=== PATIENT | male | born 1965 | race Caucasian/White ===

== ENCOUNTER 2021-02-18 18:37 | Emergency (ER) | payer OTHER, SELFPAY ==
--- NOTE | 2021-02-18 18:43 | ED_ITS ---
HPI - Allergic Reaction General Chief complaint: Allergic Reaction Stated complaint: allergic reaction - bee string Time Seen by Provider: 02/18/21 18:42 Source: patient and family Mode of arrival: ambulatory Limitations: no limitations History of Present Illness MD complaint: allergic reaction and hives Onset (ago): hour(s) (1) Exposure: insect bite (multiple bee stings) Symptoms: rash, itching, difficulty swallowing and hoarseness Severity: severe Treatment prior to arrival: benadryl (25) Previous Allergic Reaction History: none Related Data Previous Rx's Medication Instructions Recorded epinephrine 0.3 mg/0.3 mL 0.3 mg IM Q10M PRN #2 ea 02/18/21 injection, auto-injector prednisone 20 mg tablet 40 mg PO DAILY 5 Days #10 tab 02/18/21 Allergies Allergy/AdvReac Type Severity Reaction Status Date / Time oxycodone [From ROXICET] AdvReac Intermediate HALLUCINATI Verified 02/18/21 21:27 ONS bee pollen [bee stings] AdvReac Anaphylaxis Verified 02/18/21 21:27 Review of Systems Review of Systems: Constitutional : No Fever, No Chills ENT/Mouth : no oral swelling, pos Hoarseness, No Swallowing Difficulty Eyes: No Eye Pain, No Swelling, No Redness Cardiovascular : No Chest Pain, No SOB Respiratory : No Cough, No Sputum, No Wheezing, No Smoke Exposure, No Dyspnea Gastrointestinal : No Nausea, No Vomiting, No Diarrhea, No abdominal Pain Genitourinary : No Dysuria, No Urinary Frequency, No Hematuria Musculoskeletal : No joint pain, No Myalgias, No Joint Swelling Skin : No Skin Lesions, positive rash Neuro : No Weakness, No Numbness, No Headache Psych : No Anxiety/Panic, No Depression Heme/Lymph: No Bruising, No Lymphadenopathy Endocrine : No Polyuria, No Polydipsia All other systems reviewed and are negative [facility] Past Medical History Attestation statement: The following information was validated with the patient. Medical History HTN (hypertension) Social History Social History (Updated 02/18/21 @ 18:45 by Arianna Duran DO) Patient Tobacco Use Status: Never used Tobacco Use of substances other than those prescribed or required for medical reasons: No Advance Directives: No Advance Directives Information Provided: No Physical Exam Vital Signs: Vital Signs: Last Vital Signs Temp 97.5 F 02/18/21 21:17 Pulse 74 02/18/21 21:17 Resp 17 02/18/21 21:17 BP 175/91 H 02/18/21 21:17 Pulse Ox 96 02/18/21 21:17 Body Mass Index 25.8 Appearance: Alert. Oriented X3. Anxious mild acute distress. Eyes: Pupils equal, round and reactive to light. ENT: Pharynx normal. no oral swelling noted Neck: Normal inspection. Neck supple. CVS: Normal heart rate and rhythm. Pulses normal. Respiratory: No respiratory distress. Breath sounds normal. Abdomen: Soft and nontender. Skin: Skin warm and dry. Normal skin color. diffuse hives Extremities: No lower extremity edema. No calf ttp Neuro: Oriented X 3. No motor deficit. No sensory deficit. Course Course Course Narrative: patient is overall improving at this time needed repeat dose of benadryl for just hives on the arm has done well - no need for repeat epi observed x 4 hours has Rx for epi pen and prednione MDM - Allergic Reaction MDM Narrative Medical decision making narrative: 55 yo male with HTN here with c/o hives, hoarseness and some diff swallowing 1 hour [employer]TE[employer] due to multiple bee stings. The patient is anaphylactic at this time - will need IM epi, IV steroids, IV pepcid/benadryl. Will observe and monitor. Critical Care Time Critical Care Time Critical Care Time: Yes Total Critical Care Time: 35 Attestation: IM epi, observation, treatment of acute anaphylaxis I attest to this time spent taking care of the patient Discharge Plan Discharge Clinical Impression: Anaphylaxis Patient Disposition: Home, Self-Care Instructions: Anaphylaxis (ED) Additional Instructions: return to ED for any worsening symptoms or concerns Prescriptions: New prednisone 20 mg tablet 40 mg PO DAILY 5 Days Qty: 10 RF: 0 epinephrine 0.3 mg/0.3 mL auto-injector 0.3 mg IM Q10M PRN (Reason: anaphylaxis) Qty: 2 RF: 0 Stand Alone Forms: Work/School Release
[2021-02-18] MEDS: diphenhydrAMINE HCL 50 MG/ML VIAL 25 MG IVPUSH ×2 (18:46→20:16)
[2021-02-18] MEDS: 0.9 % Sodium Chloride 1,000 ML 999 ML IV (18:47)
[2021-02-18] MEDS: EPINEPHrine 1 MG/ML VIAL 0.3 MG IM (18:48)
[2021-02-18] MEDS: methylPREDNISolone Sod Succ 125 MG/2 ML VIAL IVPUSH (18:49)
[2021-02-18 18:50] VITALS: PULSE 88; RESP 24; O2SAT 96; BMI 25.8
[2021-02-18 18:57] VITALS: BP 181/119; PULSE 77; RESP 17; O2SAT 96
[2021-02-18] MEDS: Famotidine/PF 20 MG/2 ML VIAL IVPUSH (18:59)
[2021-02-18 19:09] VITALS: BP 182/104; PULSE 86; RESP 16; O2SAT 96
--- NOTE | 2021-02-18 19:10 | PC.NURSE ---
Lungs clear to auscultation. Per at bedside, hives are much better at this time. Hives noted to right inner thigh.
--- NOTE | 2021-02-18 20:18 | PC.NURSE ---
patient called this RN to room. Large red raised areas to right forearm. Spoke with Dr Duran. Patient given another 25mg Benadryl per order.
[2021-02-18 21:17] VITALS: BP 175/91; PULSE 74; RESP 17; TEMP 36.4; O2SAT 96
== END 2021-02-18 22:45 | disposition home or self-care (01) ==
PROVIDERS: Emergency Provider Emergency Medicine; PCP Physician Assistant Medical
DX: T63.441A Toxic effect of venom of bees, accidental (unintentional), initial encounter (principal); T78.2XXA Anaphylactic shock, unspecified, initial encounter; X58.XXXA Exposure to other specified factors, initial encounter; I10 Essential (primary) hypertension
CPT/HCPCS: 96361; 96372; 96374; 96375; 96376; 99284; 99291; J0171; J1200; J2930

== ENCOUNTER 2021-08-04 16:51 | Outpatient (REF) | payer OTHER, SELFPAY | END 2021-08-04 16:52 | disposition home or self-care (01) | LOC: HO.LNP 16:51 | PROVIDERS: Visit Provider Physician Assistant | DX: R30.0 Dysuria (principal) | CPT/HCPCS: 87086; 87088; 87186 ==

== ENCOUNTER 2021-08-06 07:26 | Inpatient (IN) | payer OTHER, SELFPAY ==
[2021-08-06] VITALS (11 sets, daily range): BP systolic 129–168; BP diastolic 73–93; PULSE 81–89; RESP 16–20; TEMP 36.6–38.3; O2SAT 96–98; BMI 26.6
--- NOTE | ~2021-08-06 | US_ITS ---
EXAMINATION: US RETROPERITONEAL LIMITED (RENAL ONLY) CLINICAL INFORMATION: Flank pain, urinary retention, evaluate for stones. COMPARISON: No similar priors. TECHNIQUE: Real-time imaging of the kidneys. FINDINGS: RIGHT KIDNEY: 10.7 x 5.1 x 6.3 cm (SAG x AP x TRV). The kidney is normal in size, contour, and echogenicity. Renal cortical thickness is normal. Minimally septated 1.3 cm cyst in the mid pole, classified as Bosniak 2 and not requiring further follow-up. LEFT KIDNEY: 10.3 x 5.7 x 5.2 cm (SAG x AP x TRV). The kidney is normal in size, contour, and echogenicity. Renal cortical thickness is normal. No calculi or focal parenchymal lesions. No hydronephrosis. US/US renal BI IMPRESSION: No acute sonographic abnormalities.
--- NOTE | 2021-08-06 07:45 | ED_ITS ---
HPI - Male Genitourinary General Chief complaint: Urogenital-Male Stated complaint: Blood in urine Time Seen by Provider: 08/06/21 07:45 Source: patient Mode of arrival: ambulatory Limitations: no limitations History of Present Illness HPI Narrative: 2 days ago started with hematuria, patient was placed on macrobid BID, last night had fever to 101.7. Now with flank pain. Complaint: dysuria Onset (ago): day(s) Duration: constant Location: right flank Severity: moderate Quality: burning Associated symptoms: Reports dysuria and fever Related Data Home Medications Medication Instructions Recorded Confirmed simvastatin 10 mg tablet 10 mg PO BEDTIME 08/04/21 08/06/21 lisinopril 20 mg tablet 20 mg PO BID 08/06/21 08/06/21 tamsulosin 0.4 mg capsule 0.4 mg PO BEDTIME 08/06/21 08/06/21 Previous Rx's Medication Instructions Recorded epinephrine 0.3 mg/0.3 mL 0.3 mg (0.3 mL) IM Q10M PRN #2 ea 02/18/21 injection, auto-injector nitrofurantoin 100 mg PO Q12H 5 Days #10 cap 08/04/21 monohydrate/macrocrystals 100 mg capsule (Macrobid) Allergies Allergy/AdvReac Type Severity Reaction Status Date / Time oxycodone [From ROXICET] AdvReac Intermediate HALLUCINATI Verified 08/04/21 13:02 ONS bee pollen [bee stings] AdvReac Anaphylaxis Verified 08/04/21 13:02 Review of Systems Constitutional: Constitutional: Reports no additional constitutional complaints Eyes: Eyes: Reports no additional eye complaints ENT: Denies dizziness Cardiovascular: Cardiovascular: Reports no additional cardiovascular complaints Respiratory: Respiratory: Reports as per HPI Gastrointestinal: Gastrointestinal: Reports no additional gastrointestinal complaints Musculoskeletal: Musculoskeletal: Reports no additional musculoskeletal complaints Integumentary/Breasts: Skin/Breast: Denies rash Neurologic: Reports system reviewed and no additional complaints, except as documented, Denies dizziness and Denies Sensory deficit (Neuro) Psychiatric: Psychiatric: Denies anxiety PMF Past Medical History Medical History HTN (hypertension) Surgical History No pertinent past surgical history Family History Family History Father Prostate cancer Social History Social History Household Members: None Housing: House Do you presently have visiting nurse or other home services: No Alcohol intake: current Alcohol intake frequency: holidays/special occasions only Patient Tobacco Use Status: Never used Tobacco service: No Current occupational status: employed Physical Exam Vital Signs: Vital Signs: Last Vital Signs Temp 96.9 F 08/08/21 07:45 Pulse 86 08/08/21 07:45 Resp 18 08/08/21 07:45 BP 133/89 08/08/21 07:45 Pulse Ox 93 08/08/21 07:45 BMI result Body Mass Index 26.6 Const: General: healthy appearing Nutritional Appearance: average body habitus Orientation/consciousness: oriented to person and patient oriented x3 Limitations: no limitations HEENT: Head: Yes normal to inspection Ears: external ears normal General nose exam: Normal external nose present Mouth: Normal oral and palatal mucosa present and oropharynx normal Throat: Yes posterior oropharynx normal Eyes: General: appearance normal, both eyes and all related structures Neck: Other: supple Neck: Yes normal visual inspection Chest: Chest palpation & inspection: normal inspection of the chest Resp: Auscultation: clear to auscultation bilaterally Cardio: Jugular venous distension: no JVD Rate: regular rate Rhythm: regular rhythm Heart sounds: S1 normal heart sound present and S2 normal heart sound present GI: Inspection: Yes normal to inspection Palpation (GI): Soft to palpation, nontender and No hepatosplenomegaly present Auscultation: normal bowel sounds : General: Yes no CVA tenderness Back/Spine/Pelvis: Back: no CVA tenderness Skin: General skin exam: no rashes or lesions noted Neuro: General: oriented to person and patient oriented x3 Cranial nerves: Yes CN's II-XII intact bilaterally Motor exam (neuro): 5/5 motor strength present throughout Sensory Exam: No Sensory deficit (Neuro) Extrem: General: Yes normal to inspection Psych: Appearance: grossly normal Course Reevaluation(s) Reevaluation #1: Patient with urinary retention 450, infected urine, fever and rigors at home on macrobid, elevated WBC and lactate will admit. Time: 10:35 MDM - Male Genitourinary Lab Data Result diagrams: 08/08/21 05:33 08/08/21 05:33 Labs: Lab Results 08/06/21 08/06/21 08/06/21 Range/Units 08:11 08:12 08:12 WBC 16.3 H (4.8-10.8) X10*3/uL RBC 4.91 (4.60-5.80) X10*6/uL Hgb 15.4 (14.0-18.0) g/dl Hct 45.8 (42.0-52.0) % MCV 93.3 (80.0-98.0) fL MCH 31.4 (27.0-33.0) pg MCHC 33.6 (31.0-36.0) g/dl RDW 12.1 (11.0-16.0) % Plt Count 179 (160-400) X10*3/uL MPV 13.2 H (9.4-12.4) fL Immature Gran % (Auto) 0.9 H (0.0-0.4) % Neut % (Auto) 76.7 H (45-73) % Lymph % (Auto) 11.0 L (20-40) % Simpson % (Auto) 10.0 (2-11) % Eos % (Auto) 1.2 (0-4) % Baso % (Auto) 0.2 (0-2) % Lymph # (Auto) 1.8 (1.2-4.9) X10*3/uL Simpson # (Auto) 1.6 H (0.1-1.2) X10*3/uL Eos # (Auto) 0.2 (0.0-0.4) X10*3/uL Baso # (Auto) 0.0 (0.0-0.2) X10*3/uL Abs Immat Gran (auto) 0.14 H (0.00-0.03) X10*3/uL Absolute Neuts (auto) 12.5 H (2.0-8.3) x10*3/uL Absolute Nucleated RBC 0.000 (0.0-0.012) X10*3/uL Nucleated RBC % (auto) 0.0 (0.0-0.2) /100WBC Smear Tech's Comments VERIFIED Sodium 134 L (135-145) mmol/L Potassium 4.2 (3.3-5.1) mmol/L Chloride 98 (96-108) mmol/L Carbon Dioxide 25 (22-29) mmol/L Anion Gap 15 (12-20) BUN 22 H (9-16) mg/dL Creatinine 1.33 (0.5-1.4) mg/dL Estim Creat Clear Calc 57.2 Estimated GFR 55 Random Glucose 217 H (60-115) mg/dL Lactic Acid (0.5-2.0) mmol/L Lactic Acid F/U @ 2Hr (0.5-2.0) mmol/L Calcium 9.7 (8.4-10.2) mg/dL Total Bilirubin 2.8 H (0.0-1.0) mg/dL Direct Bilirubin 1.0 H (0.0-0.5) mg/dL AST 40 H (5-37) U/L ALT 39 (0-40) U/L Alkaline Phosphatase 83 (39-117) U/L Total Protein 7.3 (6.5-8.0) g/dL Albumin 4.3 (3.5-5.0) g/dL Urine Color YELLOW Urine Appearance HAZY Urine pH 5.5 (5.0-8.0) Ur Specific [place] 1.010 (1.005-1.025) Urine Protein NEG (NEG-TRACE) MG/DL Urine Glucose (UA) NEG (NEG) MG/DL Urine Ketones 15 (NEG) MG/DL Urine Blood TRACE (NEG) Urine Nitrite NEG (NEG) Ur Leukocyte Esterase 2+ H (NEG) Urine RBC 0-2 (0) /HPF Urine WBC 15-29 H (0-4) /HPF Urine WBC Clumps NOTED Ur Squamous Epith Cells TRACE /LPF Urine Bacteria TRACE /LPF COVID-19 (CHENG) (Negative) COVID-19 Clin Com 08/06/21 08/06/21 08/06/21 Range/Units 08:12 10:48 10:56 WBC (4.8-10.8) X10*3/uL RBC (4.60-5.80) X10*6/uL Hgb (14.0-18.0) g/dl Hct (42.0-52.0) % MCV (80.0-98.0) fL MCH (27.0-33.0) pg MCHC (31.0-36.0) g/dl RDW (11.0-16.0) % Plt Count (160-400) X10*3/uL MPV (9.4-12.4) fL Immature Gran % (Auto) (0.0-0.4) % Neut % (Auto) (45-73) % Lymph % (Auto) (20-40) % Simpson % (Auto) (2-11) % Eos % (Auto) (0-4) % Baso % (Auto) (0-2) % Lymph # (Auto) (1.2-4.9) X10*3/uL Simpson # (Auto) (0.1-1.2) X10*3/uL Eos # (Auto) (0.0-0.4) X10*3/uL Baso # (Auto) (0.0-0.2) X10*3/uL Abs Immat Gran (auto) (0.00-0.03) X10*3/uL Absolute Neuts (auto) (2.0-8.3) x10*3/uL Absolute Nucleated RBC (0.0-0.012) X10*3/uL Nucleated RBC % (auto) (0.0-0.2) /100WBC Smear Tech's Comments Sodium (135-145) mmol/L Potassium (3.3-5.1) mmol/L Chloride (96-108) mmol/L Carbon Dioxide (22-29) mmol/L Anion Gap (12-20) BUN (9-16) mg/dL Creatinine (0.5-1.4) mg/dL Estim Creat Clear Calc Estimated GFR Random Glucose (60-115) mg/dL Lactic Acid 2.7 H* (0.5-2.0) mmol/L Lactic Acid F/U @ 2Hr 1.2 (0.5-2.0) mmol/L Calcium (8.4-10.2) mg/dL Total Bilirubin (0.0-1.0) mg/dL Direct Bilirubin (0.0-0.5) mg/dL AST (5-37) U/L ALT (0-40) U/L Alkaline Phosphatase (39-117) U/L Total Protein (6.5-8.0) g/dL Albumin (3.5-5.0) g/dL Urine Color Urine Appearance Urine pH (5.0-8.0) Ur Specific [place] (1.005-1.025) Urine Protein (NEG-TRACE) MG/DL Urine Glucose (UA) (NEG) MG/DL Urine Ketones (NEG) MG/DL Urine Blood (NEG) Urine Nitrite (NEG) Ur Leukocyte Esterase (NEG) Urine RBC (0) /HPF Urine WBC (0-4) /HPF Urine WBC Clumps Ur Squamous Epith Cells /LPF Urine Bacteria /LPF COVID-19 (CHENG) Negative (Negative) COVID-19 Clin Com See Note Discharge Plan Discharge Clinical Impression: Urinary tract infection, Sepsis, Acute urinary obstruction Patient Disposition: Admitted As Inpatient Interventions: Admission Worksheet (ED) Last Done: 08/06/21 15:58 Discharge Date/Time: 08/06/21 15:59
--- NOTE | 2021-08-06 08:19 | PC.NURSE ---
reports intermittent right CVA pain, stabbing . no pain currently. urine is pale yellow. pt statesthis is an improvement. also still c/o dysuria. no n/v. skin pwd. abd soft non tender. alert.
[2021-08-06 08:20] LABS: Appearance Urine HAZY; Color Urine YELLOW; Glucose Urine UA NEG (NEG); Leukocyte Esterase Urine 2+ (NEG); Nitrite Urine NEG (NEG); PH 5.5 (5.0-8.0); UACC Culture Trigger YES; Urine Blood TRACE (NEG); Urine Ketones 15 MG/DL (NEG); Urine Protein NEG (NEG-TRACE)
[2021-08-06 08:32] LABS: Lactic Acid 2.7 mmol/L (0.5-2.0)
[2021-08-06 08:36] LABS: Bacteria Urine TRACE /LPF; RBC Urine 0-2 /HPF (0); Squamous Epithelial Cell Urine TRACE /LPF; WBC Clumps Urine NOTED
[2021-08-06] MEDS: cefTRIAXone sodium 2 GM in 0.9 % Sodium Chloride 50 ML IV (08:41)
[2021-08-06] MEDS: 0.9 % Sodium Chloride 1,000 ML 999 ML IVCONT ×3 (08:42→11:52)
[2021-08-06 08:52] LABS: Alanine Aminotransferase 39 U/L (0-40); Albumin Level 4.3 g/dL (3.5-5.0); Alkaline Phosphatase 83 U/L (39-117); Anion Gap 15 (12-20); Aspartate Amino Transferase 40 U/L (5-37); Bilirubin Total 2.8 mg/dL (0.0-1.0); Blood Urea Nitrogen 22 mg/dL (9-16); Calcium 9.7 mg/dL (8.4-10.2); Carbon Dioxide 25 mmol/L (22-29); Chloride 98 mmol/L (96-108); Creatinine Clr Calc Pharmacy 57.2; Estimated Glomerular Filt Rate 55; Glucose Random 217 mg/dL (60-115); Potassium 4.2 mmol/L (3.3-5.1); Sodium 134 mmol/L (135-145); Total Protein 7.3 g/dL (6.5-8.0)
[2021-08-06 09:58] LABS: Basophils Percent Auto 0.2 % (0-2); Eosinophils Absolute Auto 0.2 X10*3/uL (0.0-0.4); Eosinophils Percent Auto 1.2 % (0-4); Hematocrit 45.8 % (42.0-52.0); Hemoglobin 15.4 g/dl (14.0-18.0); Imm Gran Abs Auto 0.14 X10*3/uL (0.00-0.03); Imm Gran Pct Auto 0.9 % (0.0-0.4); Lymphocytes Absolute Auto 1.8 X10*3/uL (1.2-4.9); MANUAL DIFF FLAG SCAN; Mean Corpuscular HGB Conc 33.6 g/dl (31.0-36.0); Mean Corpuscular Hemoglobin 31.4 pg (27.0-33.0); Mean Corpuscular Volume 93.3 fL (80.0-98.0); Mean Platelet Volume 13.2 fL (9.4-12.4); Monocytes Absolute Auto 1.6 X10*3/uL (0.1-1.2); Neutrophils Absolute Auto 12.5 x10*3/uL (2.0-8.3); Neutrophils Percent Auto 76.7 % (45-73); Platelet Count 179 X10*3/uL (160-400); Red Blood Count 4.91 X10*6/uL (4.60-5.80); Red Cell Distribution Width 12.1 % (11.0-16.0); SCAN SMEAR FLAG 1; White Blood Count 16.3 X10*3/uL (4.8-10.8)
[2021-08-06 10:16] LABS: SLIDE REVIEW VERIFIED
[2021-08-06 10:18] LABS: Reflex Lactate? Lactic Acid Added
--- NOTE | 2021-08-06 10:21 | PC.NURSE ---
pt reports very sml void despite fluids. denies pressure . bladder scan to bedside.
--- NOTE | 2021-08-06 11:04 | PHA.MEDREC ---
MED REC COMPLETE, NO ISSUES Pharmacy Consult ? Medication Reconciliation Pharmacy has completed the medication reconciliation.
[2021-08-06 11:05] LABS: ~Lactic Acid-LAB USE ONLY 1.2 mmol/L (0.5-2.0)
--- NOTE | 2021-08-06 11:12 | PM.IMHP ---
History of Present Illness Date of Service: 08/06/21 Chief Complaint: fevers and R flank pain This is a 56 yo M with a PMH of BPH who presents to the ED after he had fevers >101 and chills with associated intermittent R flank pain on the evening prior to arrival. The patient reports that 2 days prior to admission, he went to an urgent care center due to painless hematuria. During that visit, he was found to have a UTI and was prescribed Macrobid. He reports taking two does of the medication. He reports that he felt fine without any further hematuria / dysuria until his febrile episodes. In regards to his flank pain, he reports it has a sharp sensation, occuring intermittently but only lasting a second. Denies constant pain. He denies any abdominal pain, nausea/vomiting. In regards to his history -- he reports a history of prostate Ca in his father (who was diagnosed in his 70s). He reports that he does follow up with a urologist and does get annual PSA. In the ED, the patient was noted to have leukocytosis, tachycardia. He had an elevated lactate and elevated T. Bili. His UA was suggestive of UTI. He had cultures drawn, was given the appropriate sepsis fluid bolus, IV antibiotics and admission has been requested. Of note, the patient had urinary retention. Case has been d/w (by the ED provider) with urology with recommendations of stewart catheter placement. Review of Systems Review of Systems: negative except HPI [facility] Medical History HTN (hypertension) Family History Father Prostate cancer Surgical History No pertinent past surgical history Social History Alcohol intake: current Alcohol intake frequency: holidays/special occasions only Patient Tobacco Use Status: Never used Tobacco Use of substances other than those prescribed or required for medical reasons: No Advance Directives: No Advance Directives Information Provided: No Meds Allergies Allergy/AdvReac Type Severity Reaction Status Date / Time oxycodone [From ROXICET] AdvReac Intermediate HALLUCINATI Verified 08/04/21 13:02 ONS bee pollen [bee stings] AdvReac Anaphylaxis Verified 08/04/21 13:02 Home Medications Medication Instructions Recorded Confirmed Last Taken Type simvastatin 10 mg tablet 10 mg PO BEDTIME 08/04/21 08/06/21 08/05/21 History lisinopril 20 mg tablet 20 mg PO BID 08/06/21 08/06/21 08/05/21 History tamsulosin 0.4 mg capsule 0.4 mg PO BEDTIME 08/06/21 08/06/21 08/05/21 History Physical Exam Vital Signs and Narrative: Vital Signs: Last Vital Signs Temp 98.3 F 08/06/21 08:07 Pulse 82 08/06/21 10:01 Resp 18 08/06/21 10:01 BP 142/76 H 08/06/21 10:01 Pulse Ox 98 08/06/21 10:01 BMI result Body Mass Index 26.6 Const: Other: Constitutional - Awake and Alert, No apparent distress Eyes - PERRLA, EOMI Cardiovascular - S1S2, RRR, No edema Respiratory - Normal lung expansion, Normal respiratory effort, No respiratory distress, CTA bilaterally Gastrointestinal - NT / ND; +BS; No rebound or guarding - No CVA tenderness Extremities - no calf tenderness bilaterally, no swelling Musculoskeletal - Normal inspection, normal ROM Skin - Warm/Dry Neurological - Alert & oriented x3, No focal deficit Psychological - Appropriate affect Results Labs CBC and Chem 7: 08/06/21 08:12 08/06/21 08:12 Labs: Laboratory Results - last 24 hr 08/06/21 08/06/21 08/06/21 08:11 08:12 08:12 MCV 93.3 MCH 31.4 MCHC 33.6 RDW 12.1 Plt Count 179 MPV 13.2 H Immature Gran % (Auto) 0.9 H Neut % (Auto) 76.7 H Lymph % (Auto) 11.0 L Esmeralda % (Auto) 10.0 Eos % (Auto) 1.2 Baso % (Auto) 0.2 Lymph # (Auto) 1.8 Esmeralda # (Auto) 1.6 H Eos # (Auto) 0.2 Baso # (Auto) 0.0 Abs Immat Gran (auto) 0.14 H Absolute Neuts (auto) 12.5 H Absolute Nucleated RBC 0.000 Nucleated RBC % (auto) 0.0 Smear Tech's Comments VERIFIED Anion Gap 15 Estim Creat Clear Calc 57.2 Estimated GFR 55 Random Glucose 217 H Lactic Acid Lactic Acid F/U @ 2Hr Calcium 9.7 Total Bilirubin 2.8 H Direct Bilirubin 1.0 H AST 40 H ALT 39 Alkaline Phosphatase 83 Total Protein 7.3 Albumin 4.3 Urine Color YELLOW Urine Appearance HAZY Urine pH 5.5 Ur Specific [place] 1.010 Urine Protein NEG Urine Glucose (UA) NEG Urine Ketones 15 Urine Blood TRACE Urine Nitrite NEG Ur Leukocyte Esterase 2+ H Urine RBC 0-2 Urine WBC 15-29 H Urine WBC Clumps NOTED Ur Squamous Epith Cells TRACE Urine Bacteria TRACE 08/06/21 08/06/21 08:12 10:48 MCV MCH MCHC RDW Plt Count MPV Immature Gran % (Auto) Neut % (Auto) Lymph % (Auto) Esmeralda % (Auto) Eos % (Auto) Baso % (Auto) Lymph # (Auto) Esmeralda # (Auto) Eos # (Auto) Baso # (Auto) Abs Immat Gran (auto) Absolute Neuts (auto) Absolute Nucleated RBC Nucleated RBC % (auto) Smear Tech's Comments Anion Gap Estim Creat Clear Calc Estimated GFR Random Glucose Lactic Acid 2.7 H* Lactic Acid F/U @ 2Hr 1.2 Calcium Total Bilirubin Direct Bilirubin AST ALT Alkaline Phosphatase Total Protein Albumin Urine Color Urine Appearance Urine pH Ur Specific [place] Urine Protein Urine Glucose (UA) Urine Ketones Urine Blood Urine Nitrite Ur Leukocyte Esterase Urine RBC Urine WBC Urine WBC Clumps Ur Squamous Epith Cells Urine Bacteria Assessment and Plan (1) Severe sepsis: Status: Acute Plan This is a 56 yo M who had an episode of sabrina hematuria 2 days prior to admission and was subsequently diagnosed with an UTI. He now presents with intermittent flank pain and fevers. He has met sepsis criteria and will be admitted for further work up and treatment. 1. Severe sepsis secondary to UTI and likely early pyelonephritis Meets CMS sepsis criteria with leukocytosis and tacycardia with severe features of elevated bilirubin + lactate; Meets SOFA score 3 (+2 for bili >2; +1 for SCr between 1.2 - 1.9) Follow culture data; urine from Urgent care 2 days ago growing pansensitive E. Coli completed IV fluild bolus of 2L, will give an additional 1L now; continue rocehpin Sepsis focus exam completed @ 1110 2. UTI and likely early pyelonephritis Rocephin 3. Hematuria improved, initially sabrina Urology eval 4. Urinary retention Stewart check renal u/s hold off on CT until seen by urology 5. Hyperbilirubinemia / lactic acidosis secondary to severe sepsis trend 6. HTN on lisinopril at home; hold for now and trend renal function Full Code DVT pptx, mechanical due to hematuria Quality Stroke Does the patient have a stroke diagnosis?: No VTE Prior VTE?: No VTE Risk Level:: Medical - moderate - high VTE Device Contraindication: N/A - Device Ordered VTE Drug Contraindication: Treatment Not Indicated
[2021-08-06 11:16] LABS: COVID-19 Test Negative (Negative); IDNOW Serial# 16C4AD1C
[2021-08-06] MEDS: Lidocaine HCl 2 % Urojet 10 ML JEL.PF.APP TOPICAL (11:51)
--- NOTE | 2021-08-06 11:55 | PC.NURSE ---
a&ox3, vitals obtained after second bag of fluids per protocol, vss, pt had stewart cath inserted-tolerated well, additional order of ivf started, call de la cruz within reach, will continue to monitor.
--- NOTE | 2021-08-06 13:15 | PC.NURSE ---
patient a&ox3, family at bedside, pt eating lunch with , ivf infused, vss, stewart cath patient/draining concentrated yellow urine, call de la cruz within reach, will continue to monitor.
--- NOTE | 2021-08-06 13:56 | MHC.CM.PN ---
Met with pt to review d/c plans; Pt resides alone but has a significant other, Erika who stays with him on occassion. Pt is independent with all care needs, has no services or DME and will contact Erika for transportation home. HCP requested (son Caesar), Vax x3 with Jaya. D/C plan: home no services
--- NOTE | 2021-08-06 17:59 | PM.UROCN ---
History of Present Illness Consult details Consult date: 08/06/21 Narrative: 56-year-old male Had initially presented to urgent care with hematuria presumed UTI Managed with Macrobid Did not improving came to hospital Found to be in retention with untreated UTI Admitted and started on broad-spectrum antibiotics Found to be growing E coli from urine Calix catheter placed difficult to determine volume in bladder when catheter placed If greater than 400 catheter should stay 48 hours before voiding trial Switch to Bactrim for 2 weeks Review of Systems Constitutional: Constitutional: Reports as per HPI and Reports no additional constitutional complaints Cardiovascular: Cardiovascular: Reports as per HPI and Reports no additional cardiovascular complaints Respiratory: Respiratory: Reports as per HPI and Reports no additional respiratory complaints Gastrointestinal: Gastrointestinal: Reports as per HPI and Reports no additional gastrointestinal complaints Genitourinary: Genitourinary: Reports as per HPI Musculoskeletal: Musculoskeletal: Reports no additional musculoskeletal complaints and Reports as per HPI Neurologic: Reports system reviewed and no additional complaints, except as documented and Reports as per HPI PMFSH Past Medical History Medical History HTN (hypertension) Family History Family History Father Prostate cancer Surgical History Surgical History No pertinent past surgical history Social History Social History Household Members: None Housing: House Do you presently have visiting nurse or other home services: No Alcohol intake: current Alcohol intake frequency: holidays/special occasions only Patient Tobacco Use Status: Never used Tobacco Smoked in Last 30 Days: No Use of substances other than those prescribed or required for medical reasons: No Currently Displaying Signs/Symptoms of Drug Intoxication Withdrawal: No Have you been hit, kicked, punched, or otherwise hurt by someone within the past year? If so, by whom?: No Do you feel safe in your current relationship?: No Is there a partner from a previous relationship who is making you feel unsafe now?: No Are you made to feel afraid or neglected: No Spiritual Healthcare Practices: n/a Advance Directives: No Advance Directives Information Provided: No Advance Directives on File: No Do you have thoughts of harming others: None Do you have a plan to hurt others: No Plan Recently lost weight without trying: No How much weight loss: Not applicable Eating poorly because of decreased appetite: No Nutrition screen score: 0 Nutrition Risks: No Nutritional Risk Poor oral hygiene: No service: No Current occupational status: employed Meds Allergies Allergy/AdvReac Type Severity Reaction Status Date / Time oxycodone [From ROXICET] AdvReac Intermediate HALLUCINATI Verified 08/04/21 13:02 ONS bee pollen [bee stings] AdvReac Anaphylaxis Verified 08/04/21 13:02 Active Medications: Current Medications Acetaminophen (Acetaminophen 325 Mg Tablet) 650 mg PO Q6H PRN PRN Reason: Pain, Mild (Pain Scale 1-3) Ceftriaxone Sodium 1 gm/ (Sodium Chloride) 50 mls @ 100 mls/hr IV Q24H [facility] Ondansetron HCl (Ondansetron Hcl 4 Mg/2 Ml Vial) 4 mg IVPUSH Q8H PRN PRN Reason: Nausea and Vomiting Sodium Chloride (0.9 % Sodium Chloride Flush 3 Ml Syringe) 3 ml IVFLUSH QSHICHI [facility] Home Medications Medication Instructions Recorded Confirmed Last Taken Type simvastatin 10 mg tablet 10 mg PO BEDTIME 08/04/21 08/06/21 08/05/21 History lisinopril 20 mg tablet 20 mg PO BID 08/06/21 08/06/21 08/05/21 History tamsulosin 0.4 mg capsule 0.4 mg PO BEDTIME 08/06/21 08/06/21 08/05/21 History Physical Exam Vital Signs: Vital Signs: Last Vital Signs Temp 100.9 F H 08/06/21 16:00 Pulse 87 08/06/21 16:00 Resp 20 08/06/21 16:00 BP 168/76 H 08/06/21 16:00 Pulse Ox 98 08/06/21 16:00 BMI result Body Mass Index 26.6 Const: General: cooperative, healthy appearing, comfortable and no acute distress Orientation/consciousness: patient oriented x3 HEENT: Face and sinus: Yes normal facial exam Mouth: moist mucous membranes Neck: Neck: Yes normal visual inspection, Yes full ROM and Yes trachea midline Chest: Chest palpation & inspection: normal inspection of the chest Resp: Effort & Inspection: normal respiratory effort, able to speak in complete sentences and no respiratory distress GI: Inspection: Yes normal to inspection Back/Spine/Pelvis: Cervical Spine: normal cervical lordosis Thoracic/Lumbar Spine: thoracic and lumbar spine normal to inspection Skin: General skin exam: no rashes or lesions noted Neuro: General: patient oriented x3, tone normal and moves all extremities Extrem: General: Yes normal to inspection and Yes capillary refill normal Results Labs Result diagrams: 08/06/21 08:12 08/06/21 08:12 Labs: Abnormal lab results 08/06/21 08/06/21 08/06/21 Range/Units 08:11 08:12 08:12 WBC 16.3 H (4.8-10.8) X10*3/uL MPV 13.2 H (9.4-12.4) fL Immature Gran % (Auto) 0.9 H (0.0-0.4) % Neut % (Auto) 76.7 H (45-73) % Lymph % (Auto) 11.0 L (20-40) % [place] # (Auto) 1.6 H (0.1-1.2) X10*3/uL Abs Immat Gran (auto) 0.14 H (0.00-0.03) X10*3/uL Absolute Neuts (auto) 12.5 H (2.0-8.3) x10*3/uL Sodium 134 L (135-145) mmol/L BUN 22 H (9-16) mg/dL Random Glucose 217 H (60-115) mg/dL Lactic Acid (0.5-2.0) mmol/L Total Bilirubin 2.8 H (0.0-1.0) mg/dL Direct Bilirubin 1.0 H (0.0-0.5) mg/dL AST 40 H (5-37) U/L Ur Leukocyte Esterase 2+ H (NEG) Urine WBC 15-29 H (0-4) /HPF 08/06/21 Range/Units 08:12 WBC (4.8-10.8) X10*3/uL MPV (9.4-12.4) fL Immature Gran % (Auto) (0.0-0.4) % Neut % (Auto) (45-73) % Lymph % (Auto) (20-40) % [place] # (Auto) (0.1-1.2) X10*3/uL Abs Immat Gran (auto) (0.00-0.03) X10*3/uL Absolute Neuts (auto) (2.0-8.3) x10*3/uL Sodium (135-145) mmol/L BUN (9-16) mg/dL Random Glucose (60-115) mg/dL Lactic Acid 2.7 H* (0.5-2.0) mmol/L Total Bilirubin (0.0-1.0) mg/dL Direct Bilirubin (0.0-0.5) mg/dL AST (5-37) U/L Ur Leukocyte Esterase (NEG) Urine WBC (0-4) /HPF Short CBC 08/06/21 Range/Units 08:12 WBC 16.3 H (4.8-10.8) X10*3/uL Hgb 15.4 (14.0-18.0) g/dl Hct 45.8 (42.0-52.0) % Plt Count 179 (160-400) X10*3/uL BMP 08/06/21 08:12 Sodium 134 L Potassium 4.2 Chloride 98 Carbon Dioxide 25 BUN 22 H Creatinine 1.33 Calcium 9.7 Liver Function 08/06/21 Range/Units 08:12 Total Bilirubin 2.8 H (0.0-1.0) mg/dL Direct Bilirubin 1.0 H (0.0-0.5) mg/dL AST 40 H (5-37) U/L ALT 39 (0-40) U/L Alkaline Phosphatase 83 (39-117) U/L Albumin 4.3 (3.5-5.0) g/dL Urine 08/06/21 Range/Units 08:11 Urine Color YELLOW Urine Appearance HAZY Urine pH 5.5 (5.0-8.0) Ur Specific [place] 1.010 (1.005-1.025) Urine Protein NEG (NEG-TRACE) MG/DL Urine Glucose (UA) NEG (NEG) MG/DL All other labs normal. Assessment and Plan (1) Urinary tract infection: Status: Acute (2) Acute urinary obstruction: Status: Acute Plan start alpha-jennifer Add finasteride Voiding trial in 48 hours Fourteen days antibiotics and review in office Procedures Date of Service Date of Service: 08/06/21
[2021-08-06] MEDS: 0.9 % Sodium Chloride Flush 3 ML SYRINGE IVFLUSH ×2 (18:44→22:13)
[2021-08-07] VITALS: BP 119/68; PULSE 78; RESP 18; TEMP 36.9; O2SAT 99
[2021-08-07 03:49] VITALS: BP 135/79; PULSE 83; RESP 18; TEMP 37.1; O2SAT 99
[2021-08-07 06:15] LABS: Hemoglobin 13.2 g/dl (14.0-18.0); Mean Corpuscular Hemoglobin 30.6 pg (27.0-33.0); Mean Corpuscular Volume 92.6 fL (80.0-98.0); Mean Platelet Volume 12.3 fL (9.4-12.4); Platelet Count 164 X10*3/uL (160-400); Red Blood Count 4.32 X10*6/uL (4.60-5.80); Red Cell Distribution Width 12.1 % (11.0-16.0); White Blood Count 9.6 X10*3/uL (4.8-10.8)
[2021-08-07 06:33] LABS: Alanine Aminotransferase 30 U/L (0-40); Albumin Level 3.6 g/dL (3.5-5.0); Alkaline Phosphatase 71 U/L (39-117); Anion Gap 11 (12-20); Aspartate Amino Transferase 23 U/L (5-37); Bilirubin Direct 0.6 mg/dL (0.0-0.5); Bilirubin Total 1.5 mg/dL (0.0-1.0); Blood Urea Nitrogen 10 mg/dL (9-16); Calcium 8.8 mg/dL (8.4-10.2); Carbon Dioxide 24 mmol/L (22-29); Chloride 103 mmol/L (96-108); Creatinine Clr Calc Pharmacy 80.2; Estimated Glomerular Filt Rate > 60; Glucose Random 182 mg/dL (60-115); Potassium 4.1 mmol/L (3.3-5.1); Sodium 134 mmol/L (135-145)
[2021-08-07 08:00] VITALS: BP 147/81; PULSE 79; RESP 18; TEMP 37.6; O2SAT 94
[2021-08-07] MEDS: Finasteride 5 MG TABLET PO (09:48)
[2021-08-07] MEDS: cefTRIAXone sodium 1 GM in 0.9 % Sodium Chloride 50 ML IV (09:48)
[2021-08-07] MEDS: 0.9 % Sodium Chloride Flush 3 ML SYRINGE IVFLUSH ×2 (09:49→20:15)
--- NOTE | 2021-08-07 09:56 | P.PNIM_ITS ---
Subjective Subjective Date of Service: 08/07/21 Interval History: cc: hematuria, fever interval history:feeling better today, last temp 4pm 08/06 Cardiovascular Cardiovascular: Reports no additional cardiovascular complaints Respiratory Respiratory: Reports no additional respiratory complaints Physical Exam Vital Signs: Vital Signs: Last Vital Signs Temp 99.6 F 08/07/21 08:00 Pulse 79 08/07/21 08:00 Resp 18 08/07/21 08:00 BP 147/81 H 08/07/21 08:00 Pulse Ox 94 08/07/21 08:00 BMI result Body Mass Index 26.6 General: AO X 3, no acute distress Resp: CTA bilateral, no accessory muscles used CVS: S1,S2,RRR GI: soft, non tender, non distended Neuro: motor grossly intact, alert Psych: appropriate affect, appropriate insight Objective Data Active Medications Acetaminophen (Acetaminophen 325 Mg Tablet) 650 mg PO Q6H PRN PRN Reason: Pain, Mild (Pain Scale 1-3) Finasteride (Finasteride 5 Mg Tablet) 5 mg PO DAILY [facility] Last Admin: 08/07/21 09:48 Dose: 5 mg Documented by: JESSICA Ceftriaxone Sodium 1 gm/ (Sodium Chloride) 50 mls @ 100 mls/hr IV Q24H [facility] Last Admin: 08/07/21 09:48 Dose: 100 mls/hr Documented by: JESSICA Lisinopril (Lisinopril 20 Mg Tablet) 20 mg PO BID [facility]; Protocol Non-Formulary Medication (Simvastatin) 10 mg PO BEDTIME [facility] Ondansetron HCl (Ondansetron Hcl 4 Mg/2 Ml Vial) 4 mg IVPUSH Q8H PRN PRN Reason: Nausea and Vomiting Sodium Chloride (0.9 % Sodium Chloride Flush 3 Ml Syringe) 3 ml IVFLUSH QSHIFT [facility] Last Admin: 08/07/21 09:49 Dose: 3 ml Documented by: JESSICA Tamsulosin HCl (Tamsulosin Hcl 0.4 Mg Capsule) 0.4 mg PO BEDTIME [facility] Labs CBC & Chem 7: 08/07/21 06:01 08/07/21 06:02 Labs: Laboratory Results - last 24 hr 08/06/21 08/06/21 08/06/21 08:12 10:48 10:56 MCV 93.3 MCH 31.4 MCHC 33.6 RDW 12.1 Plt Count 179 MPV 13.2 H Immature Gran % (Auto) 0.9 H Neut % (Auto) 76.7 H Lymph % (Auto) 11.0 L [place] % (Auto) 10.0 Eos % (Auto) 1.2 Baso % (Auto) 0.2 Lymph # (Auto) 1.8 [place] # (Auto) 1.6 H Eos # (Auto) 0.2 Baso # (Auto) 0.0 Abs Immat Gran (auto) 0.14 H Absolute Neuts (auto) 12.5 H Absolute Nucleated RBC 0.000 Nucleated RBC % (auto) 0.0 Smear Tech's Comments VERIFIED Anion Gap Estim Creat Clear Calc Estimated GFR Random Glucose Lactic Acid F/U @ 2Hr 1.2 Calcium Total Bilirubin Direct Bilirubin AST ALT Alkaline Phosphatase Total Protein Albumin COVID-19 (CHENG) Negative COVID-19 Clin Com See Note 08/07/21 08/07/21 08/07/21 06:01 06:02 06:02 MCV 92.6 MCH 30.6 MCHC 33.0 RDW 12.1 Plt Count 164 MPV 12.3 Immature Gran % (Auto) Neut % (Auto) Lymph % (Auto) [place] % (Auto) Eos % (Auto) Baso % (Auto) Lymph # (Auto) [place] # (Auto) Eos # (Auto) Baso # (Auto) Abs Immat Gran (auto) Absolute Neuts (auto) Absolute Nucleated RBC 0.000 Nucleated RBC % (auto) 0.0 Smear Tech's Comments Anion Gap 11 L Estim Creat Clear Calc 80.2 Estimated GFR > 60 Random Glucose 182 H Lactic Acid F/U @ 2Hr Calcium 8.8 D Total Bilirubin 1.5 H Direct Bilirubin 0.6 H AST 23 D ALT 30 Alkaline Phosphatase 71 Total Protein 6.0 L Albumin 3.6 COVID-19 (CHENG) COVID-19 Clin Com Assessment and Plan (1) Severe sepsis: Status: Acute Plan This is a 56 yo M who had an episode of sabrina hematuria 2 days prior to admission and was subsequently diagnosed with an UTI. He then presented with intermittent flank pain and fevers. He has met sepsis criteria and will be admitted for further work up and treatment. Severe sepsis secondary to UTI and likely early pyelonephritis due to urinary retentino from bph urine culture ecoli continue rocehpin follow up blood culture meseret ceroney for 48hrs, then voiding trial continue flomax, proscar added Hematuria due to uti, resolved Hyperbilirubinemia / lactic acidosis secondary to severe sepsis improved HTN lisinopril Full Code DVT pptx, mechanical due to hematuria reason for continued hospitalization: awaiting 24hr fever free, blood cultures, close monitoring due to sepsis and risk for decompensation Quality Stroke Does the patient have a stroke diagnosis?: No VTE Prior VTE?: No VTE Risk Level:: Medical - moderate - high VTE Device Contraindication: N/A - Device Ordered VTE Drug Contraindication: Treatment Not Indicated
[2021-08-07] MEDS: lisinopriL 20 MG TABLET PO ×2 (10:37→20:03)
[2021-08-07 11:48] VITALS: BP 137/88; PULSE 77; RESP 18; TEMP 36.7; O2SAT 96
[2021-08-07 15:50] VITALS: BP 162/97; PULSE 92; RESP 16; TEMP 35.9; O2SAT 93
[2021-08-07 19:15] VITALS: BP 151/84; PULSE 80; RESP 16; TEMP 37; O2SAT 95
[2021-08-07] MEDS: Atorvastatin Calcium 10 MG TABLET PO (20:03)
[2021-08-07] MEDS: Tamsulosin HCL 0.4 MG CAPSULE PO (20:03)
[2021-08-08] VITALS: BP 126/77; PULSE 88; RESP 17; TEMP 37.1; O2SAT 95
[2021-08-08 04:00] VITALS: RESP 18
[2021-08-08 06:06] LABS: Hematocrit 41.9 % (42.0-52.0); Hemoglobin 13.9 g/dl (14.0-18.0); Mean Corpuscular HGB Conc 33.2 g/dl (31.0-36.0); Mean Corpuscular Hemoglobin 30.5 pg (27.0-33.0); Mean Corpuscular Volume 91.9 fL (80.0-98.0); Mean Platelet Volume 12.8 fL (9.4-12.4); Platelet Count 194 X10*3/uL (160-400); Red Blood Count 4.56 X10*6/uL (4.60-5.80); Red Cell Distribution Width 12.1 % (11.0-16.0); White Blood Count 8.2 X10*3/uL (4.8-10.8)
[2021-08-08 06:47] LABS: Anion Gap 13 (12-20); Blood Urea Nitrogen 12 mg/dL (9-16); Calcium 9.2 mg/dL (8.4-10.2); Carbon Dioxide 25 mmol/L (22-29); Chloride 102 mmol/L (96-108); Creatinine Clr Calc Pharmacy 71.8; Estimated Glomerular Filt Rate > 60; Glucose Fasting 182 mg/dL (60-99); Potassium 4.4 mmol/L (3.3-5.1); Sodium 136 mmol/L (135-145)
[2021-08-08 07:45] VITALS: BP 133/89; PULSE 86; RESP 18; TEMP 36.1; O2SAT 93
[2021-08-08] MEDS: cefTRIAXone sodium 1 GM in 0.9 % Sodium Chloride 50 ML IV (08:41)
[2021-08-08] MEDS: lisinopriL 20 MG TABLET PO (08:41)
[2021-08-08] MEDS: Finasteride 5 MG TABLET PO (08:41)
[2021-08-08] MEDS: 0.9 % Sodium Chloride Flush 3 ML SYRINGE IVFLUSH (08:43)
--- NOTE | 2021-08-08 11:01 | PM.DDS ---
Discharge Sum: Prov Provider Primary care physician: Manav Bro MD Consults: 08/06/21 11:34 Consult to Urology Routine Consulting Provider: Thomas Wise Reason for consultation: hematuria, uti/pyelo, sepsis Discharge Sum: Diag Contributing Factors (1) Severe sepsis: Discharge Sum: Summary Date and Time Date of admission: 08/06/21 11:34 Date of : 08/08/21 Summary Details: 56M was admitted for severe sepsis due to UTI/early pyelonephritis in setting of urinary retention due to presumed BPH complicated by hematuria. his outpatient urine culture was growing ecoli sensistive to ceftriaxone, which he was treated with. stewart was placed, he was continued on flomax and was seen by who recommended 48hrs stewart followed by voiding trial, and starting proscar. patient's sepsis resolved, hematuria resolved, his blood cultures remained negative. plan was for transitioning to oral antibiotics and voiding trial prior to discharge. his stewart was removed and plan was to monitor for PVR to see if patient would require stewart or intermittent cath on discharge. patient had last been seen talking, walking, asymptomatic, preparing for discharge, at about 940am, at around 10am, RN found patient unresponsive, pulseless, and cyanotic on the floor next to his bed. ACLS was initiated, Rhythm was asystole and PEA. airway was achieved, patient received multiple rounds of epinephrine, sodium bicarbonate, empiric narcan, magnesium. bedside echo revealed akinetic heart. ROSC was not achieved, patient was pronounced at 1030am. family was notified. ME notified, case was declined. Additional Data Attending physician: Nakul Trejo MD
--- NOTE | 2021-08-08 11:08 | PC.NURSE ---
This nurse last last talked to pt. inside pts room with pt exclaiming it feels good to walk around . Pt. refused lunch because he was believed he was to be discharged later this morning. Later on, this nurse was alerted to patient on the ground by environmental staff. On arrival this nurse found patient was non-responsive and blue in the face. This nurse called for help immediately and a code blue was called. This nurse continued with compressions until other hospital staff arrived.
--- NOTE | 2021-08-08 13:26 | PC.NURSE ---
This nurse contacted [facility] at approximately 11:45, [facility] declined pt.
--- NOTE | 2021-08-13 09:38 | MHC.CDI.RETR ---
Documented by User: Amanda Yost CCS, CDIS 08/13/21 09:44 Retrospective Query PHYSICIAN'S DOCUMENTATION REQUEST Date of Query: 08/13/21938 Patient Name: Giuseppe Motta Admit Date: 08/06/21 Dear Doctor, A review of the medical record indicates additional documentation may be needed. Please review below and update the documentation accordingly. Clinical Indicators: Risk Factors/Clinical Indicators/Treatments note 08/08 - planned for discharge at 9:40 a.m. - 10a.m. RN found patient unresponsive, pulseless, cyanotic. certificate 08/08 - Presumed [facility] Please clarify the following regarding the documented myocardial infarction: Myocardial infarction, not ruled out Myocardial infarction, possible, probable, suspected Other, please specify if known Unable to determine Use of terms such as suspected, likely, concern for, or probable (associated with a specific diagnosis that is being evaluated, monitored, or treated as if it exists) are acceptable and can be coded in the inpatient setting, when documented at the time of discharge. Thank you, Amanda Yost CCS, CDIS Extension: [phone] Please use your independent medical judgment in providing your response. THIS QUERY IS PART OF THE PERMANENT MEDICAL RECORD Documented by User: Nakul Trejo MD 08/17/21 14:12 Retrospective Query Provider Response: Other (see note)
== END 2021-08-08 15:33 | disposition expired | DRG 720 ==
LOC: HO.ED 10:40 → HO.EDOVER 11:53 → HO.S3 14:07
PROVIDERS: Admitting Provider Family Medicine; Emergency Provider Emergency Medicine; PCP Internal Medicine; Visit Provider Internal Medicine
DX: A41.9 Sepsis, unspecified organism (principal); I21.9 Acute myocardial infarction, unspecified; E87.2 Acidosis; N13.8 Other obstructive and reflux uropathy; N40.1 Benign prostatic hyperplasia with lower urinary tract symptoms; N10 Acute pyelonephritis; B96.20 Unspecified Escherichia coli [E. coli] as the cause of diseases classified elsewhere; I46.9 Cardiac arrest, cause unspecified; R31.9 Hematuria, unspecified; R33.8 Other retention of urine; R65.20 Severe sepsis without septic shock; Z80.42 Family history of malignant neoplasm of prostate; Z20.822 Contact with and (suspected) exposure to COVID-19; Z88.5 Allergy status to narcotic agent; Z79.899 Other long term (current) drug therapy
CPT/HCPCS: 36415; 51798; 76775; 80048; 80076; 81001; 83605; 85025; 85027; 87040; 87635; 96361; 96365; 99285; C1758; J0171; J0696; J3475